=== PATIENT | female | born 1945 | race Two or more races ===

== ENCOUNTER 2018-02-21 12:22 | Inpatient (IN) ==
[2018-02-21] MEDS ORDERED: LOPERAMIDE 2 MG CAPSULE PO STA (13:25)
[2018-02-21] MEDS ORDERED: ONDANSETRON 4 MG/2 ML VIAL IV STA (13:25)
[2018-02-21 13:51] LABS: Basophils # 0.1 10*3/uL (0.0-0.2); Basophils % 0.4 % (0.0-0.8); Eosinophils % 0.1 % (0.00-10.9); Hematocrit 35.5 VOL% (35.7-47.0); Hemoglobin 11.9 GM/DL (12.0-16.0); Immature Granulocytes % 10.1 %; Lymphocytes # 1.5 10*3/uL (1.4-4.0); Lymphocytes % 9.6 % (21.3-54.2); Mean Corpuscular HGB Conc 33.5 GM/DL (32-36); Mean Corpuscular Hemoglobin 30 PG (27-34); Mean Corpuscular Volume 89.9 FL (87-102); Mean Platelet Volume 10.1 FL (9.6-12.0); Monocytes # 1.7 10*3/uL (0.11-0.8); Monocytes % 10.8 % (1.7-12.7); Platelet Count 403 T/CUMM (130-400); Red Blood Count 3.95 MC/CUMM (3.8-5.5); Red Cell Distribution Width 14.3 % (9.3-17.3); White Blood Count 15.9 T/CUMM (4-12)
[2018-02-21 13:58] LABS: Apearance,Urine CLEAR (Clear); Bilirubin,Urine Negative (Negative); Blood, Urine Negative (Negative); Glucose,Urine (UA) Negative (Negative); Hyaline Casts,Urine 1 /LPF (0-3); Ketones,Urine Negative (Negative); Nitrite,Urine Positive (Negative); Protein,Urine 30 MG/DL; RBC,Urine 1 /HPF (0-4); Urine Color Amber (Yellow); Urine Specific Gravity 1.013 (1.001-1.035); WBC,Urine 3 /HPF (0-6)
[2018-02-21 14:18] LABS: Bilirubin,Total 0.6 MG/DL (0.2-1.0); Calcium 10.6 MG/DL (8.5-10.1); Osmolality,Calculated 269.5 MOS/KG (273-304); Potassium 3.2 MMOL/L (3.5-5.1); Total Protein 7.5 G/DL (6.4-8.3)
[2018-02-21 14:26] LABS: Band Neutrophils 24 % (0-10); Lymphocytes 9 % (20-55); Myelocytes 3 %; Segmented Neutrophils 56 % (50-85); Total Cells Counted 100
[2018-02-21 14:28] LABS: Anisocytosis 1+; Platelet Estimate Adequate
[2018-02-21] MEDS ORDERED: PROMETHAZINE 25 MG/1 ML VIAL IM STA (14:54)
[2018-02-21] MEDS ORDERED: SODIUM CHLORIDE 0.9% 1,000 ML IV STA (15:19)
[2018-02-21] MEDS ORDERED: cefTRIAXone 1,000 MG in SODIUM CHLORIDE 0.9% 100 ML IV STA (15:21)
[2018-02-21] MEDS ORDERED: ACETAMINOPHEN 325 MG TABLET PO PRN (16:08)
[2018-02-21] MEDS ORDERED: cefTRIAXone 1,000 MG in SYRINGE 1 EACH IV SCH (16:30)
[2018-02-21] MEDS: ONDANSETRON 4 MG/2 ML VIAL IV PRN (18:46)
[2018-02-21] MEDS: SODIUM CHLORIDE 0.9% 1,000 ML IV SCH (19:07)
[2018-02-21] MEDS: CELECOXIB 200 MG CAPSULE PO SCH (20:29)
[2018-02-21] MEDS: traMADol 50 MG TABLET PO PRN (20:31)
[2018-02-21] MEDS: ChlordiazePOXIDE/CLIDINIUM 5-2.5 MG CAPSULE PO SCH (20:31)
[2018-02-21] MEDS: ACYCLOVIR 800 MG TABLET PO SCH (20:31)
[2018-02-22] MEDS: SODIUM CHLORIDE 0.9% 1,000 ML IV SCH ×5 (03:25→22:50)
[2018-02-22 06:20] LABS: Basophils % 0.3 % (0.0-0.8); Eosinophils % 0.3 % (0.00-10.9); Hematocrit 28.2 VOL% (35.7-47.0); Hemoglobin 9.6 GM/DL (12.0-16.0); Immature Granulocytes % 6.9 %; Immature Granulocytes Absolute 0.85 #; Lymphocytes # 1.7 10*3/uL (1.4-4.0); Lymphocytes % 13.4 % (21.3-54.2); Mean Corpuscular Hemoglobin 31 PG (27-34); Mean Corpuscular Volume 90.1 FL (87-102); Mean Platelet Volume 10.6 FL (9.6-12.0); Monocytes # 1.2 10*3/uL (0.11-0.8); Monocytes % 9.6 % (1.7-12.7); NRBC # 0.03 10*3/uL; Neutrophils # 8.6 10*3/uL (1.4-7.4); Neutrophils % 69.5 % (38.7-73.9); Platelet Count 326 T/CUMM (130-400); Red Blood Count 3.13 MC/CUMM (3.8-5.5); Red Cell Distribution Width 14.8 % (9.3-17.3); White Blood Count 12.4 T/CUMM (4-12)
[2018-02-22 06:40] LABS: Bilirubin,Total 0.5 MG/DL (0.2-1.0); Calcium 8.8 MG/DL (8.5-10.1); Osmolality,Calculated 277.8 MOS/KG (273-304); Potassium 3.2 MMOL/L (3.5-5.1); Thyroid Stimulating Hormone 0.973 uIU/ml (0.358-3.74); Total Protein 5.4 G/DL (6.4-8.3)
[2018-02-22 08:13] LABS: Band Neutrophils 8 % (0-10); Lymphocytes 15 % (20-55); Segmented Neutrophils 65 % (50-85); Total Cells Counted 100
[2018-02-22 08:19] LABS: Hypochromasia 1+
[2018-02-22 08:20] LABS: Ovalocytes Slight; Platelet Estimate Adequate
[2018-02-22] MEDS: hydroCHLOROthiazide 12.5 MG CAPSULE PO SCH (08:31)
[2018-02-22] MEDS: PANTOPRAZOLE 40 MG VIAL IV SCH (08:31)
[2018-02-22] MEDS: LISINOPRIL 10 MG TABLET PO SCH (08:31)
[2018-02-22] MEDS: ONDANSETRON 4 MG/2 ML VIAL IV PRN ×3 (08:42→18:59)
[2018-02-22] MEDS: POTASSIUM CHLORIDE 20 MEQ TABLET PO PRN ×4 (09:31→19:00)
[2018-02-22] MEDS: PROMETHAZINE 25 MG/1 ML VIAL IM PRN ×2 (10:28→17:10)
[2018-02-22] MEDS: metroNIDAZOLE 500 MG TABLET PO SCH ×2 (15:28→20:45)
[2018-02-22] MEDS: cefTRIAXone 1,000 MG in SYRINGE 1 EACH IV SCH (15:28)
[2018-02-22] MEDS: ATORVASTATIN 40 MG TABLET PO SCH (20:45)
[2018-02-22] MEDS: ChlordiazePOXIDE/CLIDINIUM 5-2.5 MG CAPSULE PO SCH (20:46)
[2018-02-22] MEDS: ACYCLOVIR 800 MG TABLET PO SCH (20:46)
[2018-02-22] MEDS: CELECOXIB 200 MG CAPSULE PO SCH (20:46)
[2018-02-22] MEDS: traMADol 50 MG TABLET PO PRN (20:47)
[2018-02-23] MEDS: SODIUM CHLORIDE 0.9% 1,000 ML IV SCH ×4 (01:40→22:43)
[2018-02-23 02:20] LABS: Basophils % 0.3 % (0.0-0.8); Eosinophils # 0.1 10*3/uL (0.0-0.87); Eosinophils % 0.5 % (0.00-10.9); Hematocrit 25.5 VOL% (35.7-47.0); Hemoglobin 8.3 GM/DL (12.0-16.0); Immature Granulocytes % 6.6 %; Immature Granulocytes Absolute 0.71 #; Lymphocytes # 1.2 10*3/uL (1.4-4.0); Lymphocytes % 10.8 % (21.3-54.2); Mean Corpuscular HGB Conc 32.5 GM/DL (32-36); Mean Corpuscular Hemoglobin 31 PG (27-34); Mean Corpuscular Volume 94.4 FL (87-102); Mean Platelet Volume 9.8 FL (9.6-12.0); Monocytes # 0.6 10*3/uL (0.11-0.8); Monocytes % 5.1 % (1.7-12.7); Neutrophils # 8.2 10*3/uL (1.4-7.4); Neutrophils % 76.7 % (38.7-73.9); Platelet Count 283 T/CUMM (130-400); Red Cell Distribution Width 14.9 % (9.3-17.3); White Blood Count 10.7 T/CUMM (4-12)
[2018-02-23 02:46] LABS: Calcium 7.7 MG/DL (8.5-10.1); Ferritin 344.5 ng/ml (8-252); Osmolality,Calculated 281.3 MOS/KG (273-304); Potassium 3.7 MMOL/L (3.5-5.1)
[2018-02-23 03:10] LABS: Folate 19.3 NG/ML (5.4-24.0); Vitamin B12 1582 PG/ML (211-911)
[2018-02-23 05:38] LABS: Band Neutrophils 5 % (0-10); Lymphocytes 7 % (20-55); Nucleated Red Blood Cells 1 (0-5); Platelet Estimate Normal; Segmented Neutrophils 85 % (50-85); Total Cells Counted 100
[2018-02-23 05:49] LABS: Sedimentation Rate-Westergren 76 MM/HR (0-30)
[2018-02-23] MEDS: POTASSIUM CHLORIDE 20 MEQ TABLET PO PRN (06:05)
[2018-02-23] MEDS: traMADol 50 MG TABLET PO PRN ×3 (06:19→20:39)
[2018-02-23] MEDS: hydroCHLOROthiazide 12.5 MG CAPSULE PO SCH (08:33)
[2018-02-23] MEDS: PANTOPRAZOLE 40 MG VIAL IV SCH (08:33)
[2018-02-23] MEDS: metroNIDAZOLE 500 MG TABLET PO SCH ×3 (08:33→20:39)
[2018-02-23] MEDS: LISINOPRIL 10 MG TABLET PO SCH (08:34)
[2018-02-23] MEDS: ONDANSETRON 4 MG/2 ML VIAL IV PRN ×2 (12:13→20:40)
[2018-02-23] MEDS: cefTRIAXone 1,000 MG in SYRINGE 1 EACH IV SCH (15:21)
[2018-02-23] MEDS: CELECOXIB 200 MG CAPSULE PO SCH (20:39)
[2018-02-23] MEDS: ATORVASTATIN 40 MG TABLET PO SCH (20:39)
[2018-02-23] MEDS: ChlordiazePOXIDE/CLIDINIUM 5-2.5 MG CAPSULE PO SCH (20:39)
[2018-02-23] MEDS: ACYCLOVIR 800 MG TABLET PO SCH (20:39)
[2018-02-24] MEDS: traMADol 50 MG TABLET PO PRN ×3 (07:21→23:43)
[2018-02-24] MEDS: SODIUM CHLORIDE 0.9% 1,000 ML IV SCH ×3 (07:21→23:45)
[2018-02-24] MEDS: hydroCHLOROthiazide 12.5 MG CAPSULE PO SCH (09:10)
[2018-02-24] MEDS: LISINOPRIL 10 MG TABLET PO SCH (09:10)
[2018-02-24] MEDS: metroNIDAZOLE 500 MG TABLET PO SCH ×3 (09:10→20:32)
[2018-02-24] MEDS: PANTOPRAZOLE 40 MG VIAL IV SCH (09:11)
[2018-02-24] MEDS: cefTRIAXone 1,000 MG in SYRINGE 1 EACH IV SCH (16:29)
[2018-02-24] MEDS ORDERED: MAGNESIUM SULF RIDER 2 GM in PREMIX 1 EACH IV PRN (16:41)
[2018-02-24] MEDS ORDERED: MAGNESIUM SULF RIDER 4 GM in PREMIX 1 EACH IV PRN (16:41)
[2018-02-24] MEDS: ChlordiazePOXIDE/CLIDINIUM 5-2.5 MG CAPSULE PO SCH (20:32)
[2018-02-24] MEDS: ATORVASTATIN 40 MG TABLET PO SCH (20:32)
[2018-02-24] MEDS: ACYCLOVIR 800 MG TABLET PO SCH (20:32)
[2018-02-24] MEDS: CELECOXIB 200 MG CAPSULE PO SCH (20:32)
[2018-02-24] MEDS: ONDANSETRON 4 MG/2 ML VIAL IV PRN (20:35)
[2018-02-25 05:35] LABS: Potassium 3.3 MMOL/L (3.5-5.1)
[2018-02-25 07:30] LABS: Basophils % 0.3 % (0.0-0.8); Eosinophils # 0.1 10*3/uL (0.0-0.87); Eosinophils % 1.4 % (0.00-10.9); Hemoglobin 8.4 GM/DL (12.0-16.0); Immature Granulocytes % 4.2 %; Lymphocytes # 0.9 10*3/uL (1.4-4.0); Lymphocytes % 9.7 % (21.3-54.2); Mean Corpuscular HGB Conc 32.3 GM/DL (32-36); Mean Corpuscular Hemoglobin 31 PG (27-34); Mean Corpuscular Volume 94.5 FL (87-102); Mean Platelet Volume 9.7 FL (9.6-12.0); Monocytes # 0.5 10*3/uL (0.11-0.8); Neutrophils # 7.6 10*3/uL (1.4-7.4); Neutrophils % 79.4 % (38.7-73.9); Platelet Count 325 T/CUMM (130-400); Red Blood Count 2.75 MC/CUMM (3.8-5.5); Red Cell Distribution Width 15.6 % (9.3-17.3); White Blood Count 9.6 T/CUMM (4-12)
[2018-02-25 09:08] LABS: Hemoglobin A1 (Alkaline) 96.9 % (96.5-98.5); Hemoglobin A2 (Alkaline) 3.1 % (1.5-3.5)
[2018-02-25] MEDS: traMADol 50 MG TABLET PO PRN (09:33)
[2018-02-25] MEDS: LISINOPRIL 10 MG TABLET PO SCH (09:33)
[2018-02-25] MEDS: PANTOPRAZOLE 40 MG VIAL IV SCH (09:35)
[2018-02-25] MEDS: SODIUM CHLORIDE 0.9% 1,000 ML IV SCH ×2 (09:45→14:20)
[2018-02-25] MEDS ORDERED: PROPOFOL 200 MG/20 ML VIAL IV ONE (10:00)
[2018-02-25] MEDS ORDERED: LIDOCAINE 2% 5 ML VIAL ONE (10:00)
[2018-02-25] MEDS: hydroCHLOROthiazide 12.5 MG CAPSULE PO SCH (11:16)
[2018-02-25] MEDS: metroNIDAZOLE 500 MG TABLET PO SCH ×2 (11:16→16:00)
[2018-02-25 16:08] VITALS: BP 143/74
== END 2018-02-25 16:43 | disposition home or self-care (01) | DRG 392 ==
LOC: N.ED 12:22 → SUATTDRO 15:23 → N.EDINP 15:23 → N.3E 16:05
PROVIDERS: ATTEND Internal Medicine Infectious Disease